=== PATIENT | female | born 1995 | race Caucasian/White ===

== ENCOUNTER 2016-10-13 10:32 | Emergency (ER) | payer SELFPAY ==
[2016-10-13] MEDS ORDERED: Ondansetron INJ* 2 MG/ML VIAL IV ONE ×2 (11:20→12:41)
[2016-10-13] MEDS ORDERED: diPHENhydraMINE IV* 50 MG/ML 1 ml VIAL (BENADRYL) SLOW PUSH ONE ×2 (11:20→12:40)
[2016-10-13] MEDS ORDERED: NS 0.9% 1000 ML* 1,000 ML BOLUS ONE (11:20)
--- NOTE | 2016-10-13 11:26 | UC ---
Abdominal Pain Female HPI - HPI Summary HPI Summary: Abrupt onset low abdominal pain L>R staring 1.5 hours ago, since then has vomited 5-6 times, constant retching. No diarrhea or blood in vomit. has mirena in place, does not get regular menses. Denies urinary symptoms. - History of Current Complaint Chief Complaint: UCAbdominalPain Stated Complaint: LOWER ABD,UTERINE PAIN Time Seen by Provider: 10/13/16 11:08 Hx Obtained From: Patient Hx Last Menstrual Period: Mirina-spotting Onset/Duration: Sudden Onset Timing: Constant Severity Initially: Moderate Severity Currently: Moderate Location: Suprapubic Radiates: No Character: Aching, Cramping Aggravating Factor(s): Movement Alleviating Factor(s): Nothing Associated Signs and Symptoms: Positive: Decreased Appetite, Nausea, Vomiting. Negative: Cough, Chest Pain, Urinary Symptoms, Vaginal Bleeding Allergies/Adverse Reactions: Allergies Allergy/AdvReac Type Severity Reaction Status Date / Time No Known Allergies Allergy Verified 10/13/16 10:36 PMH/Surg Hx/FS Hx/Imm Hx - Additional Past Medical History Additional PMH: hx of severe pyelonephritis - Surgical History Surgical History: None - Family History Known Family History: Negative: Blood Disorder - Social History Alcohol Use: Occasionally Substance Use Type: Marijuana Substance Use Comment - Amount & Last Used: occasionally Smoking Status (MU): Current Every Day Smoker Type: Cigarettes Amount Used/How Often: 1/2 ppd - Immunization History Most Recent Influenza Vaccination: never Most Recent Tetanus Shot: within last ten years Most Recent Pneumonia Vaccination: never Review of Systems Constitutional: Negative Skin: Negative Eyes: Negative ENT: Negative Respiratory: Negative Cardiovascular: Negative Gastrointestinal: Abdominal Pain, Vomiting Genitourinary: Negative Motor: Negative Neurovascular: Negative Musculoskeletal: Negative Neurological: Negative Psychological: Negative All Other Systems Reviewed And Are Negative: Yes Physical Exam Triage Information Reviewed: Yes Appearance: Thin, Other: - retching and vomiting during initial exam Vital Signs: Initial Vital Signs Temp 98.3 F 10/13/16 10:50 Pulse 82 10/13/16 10:50 Resp 16 10/13/16 10:50 BP 103/64 10/13/16 10:50 Pulse Ox 99 10/13/16 10:50 Vital Signs Reviewed: Yes Eye Exam: Normal, Other - PERRL Eyes: Positive: Conjunctiva Clear ENT: Positive: Normal ENT inspection, Hearing grossly normal, Pharynx normal, TMs normal, Other: - MM dry. Negative: Tonsillar swelling, Tonsillar exudate Dental Exam: Normal Neck exam: Normal Neck: Positive: Supple, Nontender, No Lymphadenopathy Respiratory Exam: Normal Respiratory: Positive: Chest non-tender, Lungs clear, Normal breath sounds, No respiratory distress, No accessory muscle use Cardiovascular Exam: Normal Cardiovascular: Positive: RRR, No Murmur Abdomen Description: Positive: Other: - low abdominal discomfort. Negative: Nontender - nonfocal low ab pain Musculoskeletal Exam: Normal Musculoskeletal: Positive: Strength Intact Neurological Exam: Normal Neurological: Positive: Alert Psychological Exam: Normal Skin Exam: Normal Skin: Negative: rashes Re-Evaluation - Re-Evaluation First Eval Re-Evaluation Time: 12:05 Change: Improved - resting comfortably, no longer vomiting Second Eval Re-Evaluation Time: 12:43 Change: Worse - pain is worsening, pt was able to leave a urine sample but feels that nausea and pain is getting much worse, unable to lie still Third Eval Re-Evaluation Time: 14:00 Change: Improved - nausea under better control, still having pain Abd Pain Female Course/Dx - Course Course Of Treatment: Encouraged pt to go to ED for any worsening over the weekend, especially worsening pain, fainting, or vaginal bleeding. - Differential Dx/Diagnosis Provider Diagnoses: L ovarian hemorrhagic cyst. rupturing ovarian cyst. acute vomiting Discharge - Discharge Plan Condition: Stable Disposition: HOME Prescriptions: HYDROcodone/ACETAMIN 5-325 MG* [[place] 5-325 TAB*] 1 tab PO Q6H PRN #8 tab MDD 4 PRN Reason: Pain Naproxen [Naproxen 500 mg] 500 mg PO BID #14 tab Prochlorperazine TAB* [Compazine Tab*] 10 mg PO Q6H PRN #10 tab PRN Reason: Nausea Patient Education Materials: Ruptured Ovarian Cyst (ED), Acute Nausea and Vomiting (ED) Referrals: Diaz Liu MD [Medical Doctor] - 4 Days
[2016-10-13] MEDS ORDERED: Rabies Vaccine, PCEC INJ* 1 ml ONE (12:11)
[2016-10-13] MEDS ORDERED: Morphine VIAL* 10 MG/ML 1 ML VIAL IV ONE (12:40)
[2016-10-13 13:38] VITALS: BP 118/83
--- NOTE | 2016-10-13 14:31 | RAD ---
INDICATION: Pelvic pain COMPARISON: None TECHNIQUE: Longitudinal and transverse transvaginal scans of the pelvis were obtained. FINDINGS: Uterus: The uterus is normal in size. There are no focal masses. The uterus measures 5.9 x 3.0 x 4.6 cm. Endometrial thickness: The endometrial thickness is measured at 0.4 cm. There is an IUD in expected position.. Free fluid: There is no significant free fluid . Ovaries: The ovaries are normal in size. The right ovary measures 3.3 x 2.5 x 1.8 cm. The left ovary measures 3.9 x 4.7 x 3.9 cm. There is a complex cyst in left ovary measuring 4.3 x 3.1 x 3.4 cm. This may represent a hemorrhagic cyst. Doppler interrogation demonstrates flow to each ovary. Other: None IMPRESSION: IUD IN EXPECTED POSITION. COMPLEX, LIKELY HEMORRHAGIC LEFT OVARIAN CYST MEASURING 4.3 CM. SUGGEST FOLLOW-UP IN 2-3 MENSTRUAL CYCLES.
== END 2016-10-13 14:51 | disposition home or self-care (01) ==
LOC: UCEAST 10:32
DX: N83.202 Unspecified ovarian cyst, left side (principal); R11.2 Nausea with vomiting, unspecified; Z32.02 Encounter for pregnancy test, result negative; F17.210 Nicotine dependence, cigarettes, uncomplicated
CPT/HCPCS: 76830; 81003; 84702; 87086; 90675; 96361; 96374; 96375; 96376; 99212; G0463; J1200; J2270; J2405

== ENCOUNTER 2017-02-27 07:42 | Emergency (ER) | payer SELFPAY ==
[2017-02-27 07:59] VITALS: BP 107/69
--- NOTE | 2017-02-27 08:44 | UC ---
Neck Pain HPI - HPI Summary HPI Summary: 4 DAYS OF POSTERIOR NECK STIFFNESS AND HEADACHE. FEELS "HOT" BUT NO DOCUMENTED FEVER. YESTERDAY DEVELOPED SOME MID STERNAL CP. DENIES COUGH, CONGESTION OR OTHER URI SX. IS NOT A [employer] PERSON. LAST TOOK ADVIL 3 DAYS AGO - STATED IT DID NOT HELP. - History of Current Complaint Chief Complaint: UCHeadapamela Stated Complaint: NECK PAIN HEADACHE Time Seen by Provider: 02/27/17 08:27 Hx Obtained From: Patient, Family/[employer] Driver - GIRLFRIEND Hx Last Menstrual Period: Mirina-spotting Onset/Duration Of Injury/Symptoms: Days Mechanism Of Injury: No Known Trauma Timing: Constant Onset/Duration: Gradual Onset, Still Present Severity: Moderate Pain Intensity: 8 Pain Scale Used: 0-10 Numeric Location: Discrete At: - POSTERIOR Character: Aching, Stiff Aggravating Factors: Movement Alleviating Factors: Nothing Associated Signs & Symptoms: Positive: Headache. Negative: Swelling, Redness, Nuchal Rigity - Allergies/Home Medications Allergies/Adverse Reactions: Allergies Allergy/AdvReac Type Severity Reaction Status Date / Time No Known Allergies Allergy Verified 02/27/17 07:50 Home Medications: Home Medications Levonorgestrel (Iud) [Mirena IUD] 1 02/27/17 [History] PMH/Surg Hx/FS Hx/Imm Hx Previously Healthy: Yes - Surgical History Surgical History: None - Family History Known Family History: Negative: Hypertension, Blood Disorder - Social History Alcohol Use: Occasionally Substance Use Type: Marijuana Substance Use Comment - Amount & Last Used: occasionally Smoking Status (MU): Current Every Day Smoker Type: Cigarettes Amount Used/How Often: 1/2 ppd - Immunization History Most Recent Influenza Vaccination: never Most Recent Tetanus Shot: within last ten years Most Recent Pneumonia Vaccination: never Review Of Systems Constitutional: Positive: Fever, Fatigue Skin: Positive: Negative ENT: Positive: Negative Respiratory: Positive: Negative Cardiovascular: Positive: Negative Gastrointestinal: Positive: Negative Musculoskeletal: Positive: Arthralgia Neurological: Positive: Headache All Other Systems Reviewed And Are Negative: Yes Physical Exam Triage Information Reviewed: Yes Appearance: Well-Nourished, Pain Distress - MODERATE Vital Signs: Initial Vital Signs Temp 98.1 F 02/27/17 07:51 Pulse 94 02/27/17 07:51 Resp 16 02/27/17 07:51 BP 107/69 02/27/17 07:51 Pulse Ox 99 02/27/17 07:51 Vital Signs Reviewed: Yes Eyes: Positive: Conjunctiva Clear ENT: Positive: Hearing grossly normal Neck: Positive: No Lymphadenopathy, Tenderness @ - POSTERIOR NECK DIFFUSELY. Negative: Nuchal Rigidity Respiratory Exam: Normal Cardiovascular Exam: Normal Musculoskeletal: Positive: No Edema Neurological: Positive: Alert, Muscle Tone Normal, Other: - CN II-XII GROSSLY INTACT BILATERALLY. NO FOCAL NEUROLOGIC DEFICITS Psychological: Positive: Normal Response To Family, Age Appropriate Behavior Skin: Negative: rashes Neck Pain Course/Dx - Differential Dx/Diagnosis Provider Diagnoses: 1. ACUTE NECK PAIN/HEADACHE Discharge - Discharge Plan Condition: Stable Disposition: OTHER Discharge Disposition Comment: TO [facility] ED BY PRIVATE CAR Patient Education Materials: Neck Pain (ED) Referrals: No Primary Care Phys,NOPCP [Primary Care Provider] - Additional Instructions: GO DIRECTLY TO [facility] ED FROM HERE FOR FURTHER EVALUATION. CALL THE NUMBER BELOW FOR ASSISTANCE IN ESTABLISHING WITH A PCP An additional resource available to assist in finding the appropriate physician for your health care needs is the [facility] ([facility]). You may contact them by calling [phone].
== END 2017-02-27 08:47 ==
LOC: UCEAST 07:42
DX: M54.2 Cervicalgia (principal); R51 Headache; Z72.0 Tobacco use
CPT/HCPCS: 99211; G0463

== ENCOUNTER 2017-02-27 09:15 | Emergency (ER) | payer SELFPAY ==
--- NOTE | 2017-02-27 10:14 | ED ---
Neck Pain - HPI Summary HPI Summary: 21 female presents to ED sent by [facility] to rule out meningitis, with complaints of neck pain and stiffness that began on Sunday02/23/17 and has not improved. Patient states she thought she just slept wrong and it was a stiff neck however it has not improved. Took an ibuprofen on Sunday that only helped for 1 hour so stopped taking it. States it is both hard and painful to move her neck. Admits to feeling feverish however no known fever. Denies nausea, vomiting and vision changes. Admits to some right sided headache/pain that comes and goes. Had meningitis as a . Denies any other complaints. No other medical problems. Has a IUD, no other medications. no known trauma or injury. - History of Current Complaint Chief Complaint: EDNeckComplaint Stated Complaint: NECK PAIN COMING FROM [facility] Time Seen by Provider: 02/27/17 09:36 Hx Obtained From: Patient Hx Last Menstrual Period: Mirina-spotting Mechanism Of Injury: No Known Trauma Timing: Constant Onset/Duration: Sudden Onset, Started days ago, Still Present, Worse Since Severity Initially: Moderate Severity Currently: Severe Pain Intensity: 9 Pain Scale Used: 0-10 Numeric Location: Discrete At: - paraspinal muscles b/l of c spine C1-C6 Character: Sharp - with movement, Dull - aching in back, Aching, Stiff Aggravating Factors: Movement Alleviating Factors: Position - rest Associated Signs & Symptoms: Positive: Headache - Risk Factors Meningitis Risk Factors: Negative - Allergies/Home Medications Allergies/Adverse Reactions: Allergies Allergy/AdvReac Type Severity Reaction Status Date / Time No Known Allergies Allergy Verified 02/27/17 07:50 PMH/Surg Hx/FS Hx/Imm Hx Endocrine/Hematology History: Denies: Hx Diabetes, Hx Thyroid Disease Cardiovascular History: Denies: Hx Congestive Heart Failure, Hx Hypertension Respiratory History: Denies: Hx Asthma, Hx Chronic Obstructive Pulmonary Disease (COPD) GI History: Denies: Hx Ulcer History: Denies: Hx Renal Disease - Surgical History Surgery Procedure, Year, and Place: n/a - Immunization History Immunizations Up to Date: Yes Infectious Disease History: No Infectious Disease History: Denies: Hx Clostridium Difficile, Hx Hepatitis, Hx Human Immunodeficiency Virus (HIV), Hx of Known/Suspected MRSA, Hx Shingles, Hx Tuberculosis, Hx Known/ Suspected VRE, Traveled Outside the [place] in Last 30 Days - Family History Known Family History: Negative: Hypertension, Blood Disorder - Social History Alcohol Use: Occasionally Substance Use Type: Reports: Marijuana Substance Use Comment - Amount & Last Used: occasionally Smoking Status (MU): Current Every Day Smoker Type: Cigarettes Amount Used/How Often: 1/2 ppd Review of Systems Constitutional: Negative Cardiovascular: Negative Respiratory: Negative Positive: Arthralgia, Myalgia, Decreased ROM - neck pain and stiffness Skin: Negative All Other Systems Reviewed And Are Negative: Yes Physical Exam Triage Information Reviewed: Yes Vital Signs On Initial Exam: Initial Vitals Temp Pulse Resp BP Pulse Ox 97.8 F 85 16 113/74 99 02/27/17 09:21 02/27/17 09:21 02/27/17 09:21 02/27/17 09:21 02/27/17 09:21 Vital Signs Reviewed: Yes Appearance: Positive: Well-Appearing, Well-Nourished, Pain Distress - mild to moderate with movement Skin: Positive: Warm, Skin Color Reflects Adequate Perfusion, Dry. Negative: Cold, Cyanosis @, Pale, Erythema @ Head/Face: Positive: Normal Head/Face Inspection. Negative: Scalp Eyes: Positive: Normal, EOMI, THOMAS, Conjunctiva Clear ENT: Positive: Normal ENT inspection, Hearing grossly normal, Pharynx normal, TMs normal, Uvula midline. Negative: Tonsillar swelling, Tonsillar exudate Neck: Positive: Supple, Nontender, No Lymphadenopathy, Tenderness @ - paraspinal muscles bilaterally on palpation frp, C1-C6, Other: - negative kernigs and brudinski Respiratory/Lung Sounds: Positive: Clear to Auscultation, Breath Sounds Present. Negative: Rales, Rhonchi, Wheezes Cardiovascular: Positive: Normal, RRR, Pulses are Symmetrical in both Upper and Lower Extremities. Negative: Murmur, Rub Abdomen Description: Positive: Nontender, Soft. Negative: Distended, Guarding Bowel Sounds: Positive: Present Musculoskeletal: Positive: Normal, Strength/ROM Intact, Pain @ - with cervical movement, Other - rest of MSK exam normal. Negative: Limited @, Interruption @ , Edema Left, Edema Right Neurological: Positive: Normal, Sensory/Motor Intact, Alert, Oriented to Person Place, Time, NV Bundle Intact Distally, Normal Gait, Facial Symmetry, Speech Normal - [place] Coma Scale Best Eye Response: 4 - Spontaneous Best Motor Response: 6 - Obeys Commands Best Verbal Response: 5 - Oriented Coma Scale Total: 15 Diagnostics - Vital Signs Vital Signs Temp Pulse Resp BP Pulse Ox 02/27/17 09:21 97.8 F 85 16 113/74 99 - Laboratory Result Diagrams: 02/27/17 10:06 02/27/17 10:06 Lab Statement: Any lab studies that have been ordered have been reviewed, and results considered in the medical decision making process. - CT cervical spine CT Interpretation: No Acute Changes - STRAIGHTENING OF THE CERVICAL SPINE, NO EVIDENCE FOR FRACTURE OR SUBLUXATION. CT Interpretation Completed By: Radiologist - and myself Re-Evaluation - Re-Evaluation First Eval Re-Evaluation Time: 12:00 Change: Improved - had relief after medication, updated on plan for LP Neck Course/Dx - Course Course Of Treatment: labs obtained, given toradol and norflex and had relief however still was experiencing stiffness. Ct cervical spine obtained and negative. normal vitals. elevated CRP and sed rate. Labs unremarkable otherwise. Dr Maria consulted and preformed LP to rule out meningitis. CSF results obtained and negative. Will send out culture. Due to PE findings, HPI and lab results appears patient is suffering from neck strain. Will continue nsaids and muscle relaxer. heat and rest. aware of worsening signs and symptoms. follow up pcp. patient is aware of worsening signs and symptoms and educated on concerning symptoms after LP. No other concerns at this time. - Diagnoses Provider Diagnoses: Neck strain, Neck pain - Physician Notifications Discussed Care Of Patient With: Dr Maria Discharge - Discharge Plan Condition: Stable Disposition: HOME Prescriptions: Cyclobenzaprine TAB* [Flexeril 10 MG TAB*] 10 mg PO BEDTIME #10 tab Naproxen TAB* [Naprosyn 375 mg TAB*] 375 mg PO Q8H PRN #25 tab PRN Reason: Pain Patient Education Materials: Cervical Strain (ED), Neck Pain (ED) Referrals: [facility]YSICIAN REFERRAL [Outside] Additional Instructions: Take prescribed medication as directed for the next few days while symptoms persist. Any new or worsening symptoms please seek medical attention promptly as discussed. Follow up with PCP to ensure improvement and follow up. Rest and avoid overuse. Apply heating pad on neck for relief. Muscle relaxer may make you drowsy, do not take while driving.
[2017-02-27 10:17] LABS: Hematocrit 39 % (35-47); Hemoglobin 13.1 g/dl (12.0-16.0); Mean Corpuscular HGB Conc 34 g/dl (31-36); Mean Corpuscular Hemoglobin 28 pg (27-31); Mean Corpuscular Volume 82 fL (80-97); Mean Platelet Volume 7 um3 (7.4-10.4); Red Blood Count 4.72 10^6/ul (4.0-5.4); Red Cell Distribution Width 13 % (10.5-15); White Blood Count 6.4 10^3/ul (3.5-10.8)
[2017-02-27 10:20] LABS: Comments Flag Yes
[2017-02-27 10:32] LABS: ALT 17 U/L (7-52); AST 21 U/L (13-39); Albumin 3.9 g/dL (3.2-5.2); Alkaline Phosphatase 47 U/L (34-104); Anion Gap 5 mmol/L (2-11); BUN/Creatinine Ratio 7.5 (8-20); Blood Urea Nitrogen 6 mg/dL (6-24); C Reactive Protein 18.81 mg/L (< 5.00); CO2 Carbon Dioxide 25 mmol/L (22-32); Calcium 9.3 mg/dL (8.6-10.3); Chloride 105 mmol/L (101-111); EGFR African American 116.4 (>60); EGFR Non-African American 90.5 (>60); Glucose 99 mg/dL (70-100); Potassium 3.9 mmol/L (3.5-5.0); Sodium 135 mmol/L (133-145); Total Protein 6.9 g/dL (6.4-8.9)
[2017-02-27] MEDS ORDERED: Ketorolac INJ* 30 MG/ML 1 ML VIAL IV PUSH ONE (10:38)
[2017-02-27] MEDS ORDERED: Orphenadrine Citrate IV* 30 MG/ML 2 ML VIAL IV ONE (10:38)
--- NOTE | 2017-02-27 11:10 | RAD ---
INDICATION: Neck stiffness and pain. COMPARISON: There are no prior studies available for comparison. TECHNIQUE: Contiguous axial sections were obtained from the skull base through the T1 vertebra. Images were reconstructed in the sagittal and coronal planes. FINDINGS: There is straightening of the cervical spine with loss of the normal cervical lordosis. No prevertebral soft tissue swelling or fracture is seen. Disc spaces appear maintained. There is no evidence for spinal canal or neural foraminal narrowing. IMPRESSION: STRAIGHTENING OF THE CERVICAL SPINE, NO EVIDENCE FOR FRACTURE OR SUBLUXATION.
[2017-02-27 11:24] LABS: Erythrocyte Sed Rate 24 mm/Hr (0-14)
[2017-02-27 11:44] LABS: Urine Bacteria Absent (Absent); Urine Bilirubin Negative (Negative); Urine Glucose Negative (Negative); Urine Nitrite Negative (Negative)
[2017-02-27] MEDS: NS 0.9% 1000 ML* 2,000 ML IV ONE (11:50)
[2017-02-27] MEDS ORDERED: cefTRIAXone(*) 2 GM in NS 0.9% 100 ML* 100 ML IVPB ONE (13:59)
[2017-02-27] MEDS ORDERED: Lidocaine 1%* 5 ML VIAL ONE (14:01)
[2017-02-27 15:21] LABS: Body Fluid Appearance Clear
[2017-02-27 15:30] LABS: BF RBC Count #1 0; BF RBC Count #2 0; BF WBC Count #1 1; BF WBC Count #2 1; Body Fluid WBC 1 /mcL; RBC counts within 6%? Yes; WBC counts within 15%? Yes
[2017-02-27] MEDS ORDERED: Acetaminophen TAB* 325 MG PO ONE (15:33)
[2017-02-27 15:35] LABS: CSF Glucose 55 mg/dL (40-70)
[2017-02-27 16:01] LABS: Body Fluid Total Cells Counted 11
[2017-02-27 16:41] VITALS: BP 100/73
== END 2017-02-27 16:53 | disposition home or self-care (01) ==
LOC: ED 09:15
DX: S16.1XXA Strain of muscle, fascia and tendon at neck level, initial encounter (principal); X58.XXXA Exposure to other specified factors, initial encounter; Y93.9 Activity, unspecified; Y92.9 Unspecified place or not applicable; M54.2 Cervicalgia; R51 Headache; Z32.02 Encounter for pregnancy test, result negative; Z86.61 Personal history of infections of the central nervous system; Z97.5 Presence of (intrauterine) contraceptive device; F12.90 Cannabis use, unspecified, uncomplicated; F17.210 Nicotine dependence, cigarettes, uncomplicated
CPT/HCPCS: 36415; 72125; 80053; 81003; 81015; 82945; 83605; 84157; 84702; 85025; 85610; 85652; 86140; 87070; 87086; 87205; 89051; 96361; 96365; 96375; 99283; A9270-GY; J0696; J1885; J2360

== ENCOUNTER 2017-07-09 21:36 | Inpatient (IN) | payer SELFPAY ==
[2017-07-09 22:49] LABS: Hematocrit 37 % (35-47); Hemoglobin 12.6 g/dl (12.0-16.0); Mean Corpuscular HGB Conc 34 g/dl (31-36); Mean Corpuscular Hemoglobin 27 pg (27-31); Mean Corpuscular Volume 81 fL (80-97); Mean Platelet Volume 7.9 um3 (7.4-10.4); Platelet Count 228 10^3/ul (150-450); Red Blood Count 4.64 10^6/ul (4.0-5.4); Red Cell Distribution Width 13 % (10.5-15); White Blood Count 2.9 10^3/ul (3.5-10.8)
[2017-07-09 23:10] LABS: Urine Appearance Clear; Urine Blood 1+ (Negative); Urine Color Straw; Urine Ketones Negative (Negative); Urine Protein Negative (Negative); Urine Specific Gravity 1.002 (1.010-1.030); Urine Urobilinogen Negative (Negative)
[2017-07-09 23:33] LABS: ABS Basophils 0 10^3/ul (0-0.2); ABS Eosinophils 0.1 10^3/ul (0-0.6); ABS Monocytes 1.6 10^3/ul (0-0.8); ABS Neutrophils 0.1 10^3/ul (1.5-7.7); ABS Nucleated RBC 0 10^3/ul; Eosinophil % 2.1 % (0-6); Lymphocyte % 35.4 % (25-47); Nucleated Red Blood Cells % 0
[2017-07-09 23:55] LABS: Monocytes % 51 % (0-7)
[2017-07-09] MEDS ORDERED: NS 0.9% 1000 ML*IV.FLUID IV ONE (23:56)
--- NOTE | 2017-07-10 00:46 | ED ---
HPI Febrile Illness - HPI Summary HPI Summary: 21-year-old female presents with back pain and fever since Sunday. She states that the back pain was on the sides of her lower back. She states this is similar to when she developed pyelo couple years ago. She denies any pain with urination. she denies urinary or frequency. She denies any nausea or vomiting. She denies any bowel pain. She admits to sore throat. She denies any cough. She denies any headache or neck stiffness. She denies any photophobia. she has been taking ibuprofen for her symptoms. She denies any injury to her back. She denies any loss of bowel or bladder. She denies any saddle anesthesia. She denies any weakness into her legs. She is not an IV drug user. not on any medications and no recent illness. she has no medical conditions. - History of Current Complaint Chief Complaint: EDFlankPain Time Seen by Provider: 07/09/17 23:53 Hx Last Menstrual Period: Mirina-spotting Pain Intensity: 10 - Allergy/Home Medications Allergies/Adverse Reactions: Allergies Allergy/AdvReac Type Severity Reaction Status Date / Time No Known Allergies Allergy Verified 02/27/17 07:50 Home Medications: Home Medications NK [No Home Medications Reported] 07/10/17 [History Confirmed 07/10/17] PMH/Surg Hx/FS Hx/Imm Hx Endocrine/Hematology History: Denies: Hx Diabetes, Hx Thyroid Disease Cardiovascular History: Denies: Hx Congestive Heart Failure, Hx Hypertension Respiratory History: Denies: Hx Asthma, Hx Chronic Obstructive Pulmonary Disease (COPD) GI History: Denies: Hx Ulcer History: Denies: Hx Renal Disease - Surgical History Surgery Procedure, Year, and Place: n/a Infectious Disease History: No Infectious Disease History: Denies: Hx Clostridium Difficile, Hx Hepatitis, Hx Human Immunodeficiency Virus (HIV), Hx of Known/Suspected MRSA, Hx Shingles, Hx Tuberculosis, Hx Known/ Suspected VRE, Traveled Outside the [place] in Last 30 Days - Family History Known Family History: Negative: Hypertension, Blood Disorder - Social History Alcohol Use: Occasionally Substance Use Type: Reports: Marijuana Substance Use Comment - Amount & Last Used: last used today Smoking Status (MU): Current Every Day Smoker Type: Cigarettes Amount Used/How Often: 1/2 ppd Review of Systems Positive: Fever Positive: Sore Throat Negative: Chest Pain Negative: Shortness Of Breath Negative: Abdominal Pain, Vomiting, Diarrhea, Nausea Negative: burning Positive: Myalgia - back pain All Other Systems Reviewed And Are Negative: Yes Physical Exam Triage Information Reviewed: Yes Vital Signs On Initial Exam: Initial Vitals Temp Pulse Resp BP Pulse Ox 101.4 F 101 20 103/61 99 07/09/17 21:44 07/09/17 21:44 07/09/17 21:44 07/09/17 21:44 07/09/17 21:44 Vital Signs Reviewed: Yes Appearance: Positive: Well-Appearing Skin: Positive: Warm, Dry Head/Face: Positive: Normal Head/Face Inspection Eyes: Positive: Normal, EOMI, THOMAS, Conjunctiva Clear ENT: Positive: Pharyngeal erythema, TMs normal, Tonsillar swelling, Uvula midline, Other - soft palate symmetric. Negative: Tonsillar exudate Neck: Positive: Tenderness @ - cervical lymph nodes Respiratory/Lung Sounds: Positive: Clear to Auscultation, Breath Sounds Present Cardiovascular: Positive: Normal, RRR Abdomen Description: Positive: Nontender, Soft Bowel Sounds: Positive: Present Musculoskeletal: Positive: Strength/ROM Intact - back, Other - tenderness lower back, neg SLR, good pulses Neurological: Positive: Normal Psychiatric: Positive: Normal Diagnostics - Vital Signs Vital Signs Temp Pulse Resp BP Pulse Ox 07/09/17 23:51 99.2 F 07/09/17 21:44 101.4 F 101 20 103/61 99 - Laboratory Lab Results: Lab Results 07/09/17 07/09/17 07/09/17 Range/Units 22:30 22:30 22:46 WBC 2.9 L (3.5-10.8) 10^3/ul RBC 4.64 (4.0-5.4) 10^6/ul Hgb 12.6 (12.0-16.0) g/dl Hct 37 (35-47) % MCV 81 (80-97) fL MCH 27 (27-31) pg MCHC 34 (31-36) g/dl RDW 13 (10.5-15) % Plt Count 228 (150-450) 10^3/ul MPV 7.9 (7.4-10.4) um3 Neut % (Auto) 5.1 L (38-83) % Lymph % (Auto) 35.4 (25-47) % [place] % (Auto) 56.4 H (0-7) % Eos % (Auto) 2.1 (0-6) % Baso % (Auto) 1.0 (0-2) % Absolute Neuts (auto) 0.1 L* (1.5-7.7) 10^3/ul Absolute Lymphs (auto) 1.0 (1.0-4.8) 10^3/ul Absolute Monos (auto) 1.6 H (0-0.8) 10^3/ul Absolute Eos (auto) 0.1 (0-0.6) 10^3/ul Absolute Basos (auto) 0 (0-0.2) 10^3/ul Absolute Nucleated RBC 0 10^3/ul Immature Gran % 2 (0-9) % Neutrophils % 9 L (38-83) % Band Neutrophils % 2 (0-8) % Lymphocytes % 38 (25-47) % Monocytes % 51 H (0-7) % Nucleated RBC % 0 Normal RBC Morphology Normal (Normal) Sodium 134 L (139-145) mmol/L Potassium 4.0 (3.5-5.0) mmol/L Chloride 105 (101-111) mmol/L Carbon Dioxide 19 L (22-32) mmol/L Anion Gap 10 (2-11) mmol/L BUN 8 (6-24) mg/dL Creatinine 0.82 (0.51-0.95) mg/dL Est GFR ( Amer) 113.2 (>60) Est GFR (Non-Af Amer) 88.0 (>60) BUN/Creatinine Ratio 9.8 (8-20) Glucose 104 H (70-100) mg/dL Calcium 9.6 (8.6-10.3) mg/dL Total Bilirubin 0.90 (0.2-1.0) mg/dL AST 14 (13-39) U/L ALT 6 L (7-52) U/L Alkaline Phosphatase 43 (34-104) U/L C-Reactive Protein 98.13 H (< 5.00) mg/L Total Protein 7.0 (6.4-8.9) g/dL Albumin 4.1 (3.2-5.2) g/dL Globulin 2.9 (2-4) g/dL Albumin/Globulin Ratio 1.4 (1-3) Lipase < 10 L (11.0-82.0) U/L Beta HCG, Quant < 0.60 mIU/mL Urine Color Straw Urine Appearance Clear Urine pH 6.0 (5-9) Ur Specific [place] 1.002 L (1.010-1.030) Urine Protein Negative (Negative) Urine Ketones Negative (Negative) Urine Blood 1+ A (Negative) Urine Nitrate Negative (Negative) Urine Bilirubin Negative (Negative) Urine Urobilinogen Negative (Negative) Ur Leukocyte Esterase Negative (Negative) Urine WBC (Auto) Absent (Absent) Urine RBC (Auto) Absent (Absent) Urine Bacteria Absent (Absent) Urine Glucose Negative (Negative) Monoscreen Negative (Negative) Result Diagrams: 07/09/17 22:30 07/09/17 22:30 Lab Statement: Any lab studies that have been ordered have been reviewed, and results considered in the medical decision making process. Course/Dx - Course Course Of Treatment: 21-year-old female presents with back pain and fever since Sunday. She states that the back pain was on the sides of her lower back. She states this is similar to when she developed pyelo couple years ago. She denies any pain with urination. she denies urinary or frequency. She denies any nausea or vomiting. She denies any bowel pain. She admits to sore throat. She denies any cough. She denies any headache or neck stiffness. She denies any photophobia. she has been taking ibuprofen for her symptoms. She denies any injury to her back. She denies any loss of bowel or bladder. She denies any saddle anesthesia. She denies any weakness into her legs. She is not an IV drug user. not on any medications and no recent illness. she has no medical conditions. On exam tenderness lower back. Nontender abdomen. Pharynx erythematous. Labs White blood cell count low and is neutropenic with fever. [place] negative. Discuss with Dr. Duenas who will admit patient for neutropenic fever. Patient understands agrees the plan. - Febrile Illness Differential Diagnoses: Pyelonephritis, Viremia, Other: - mono - Diagnoses Provider Diagnoses: Back pain, Neutropenia with fever - Provider Notifications Discussed Care Of Patient With: dr duenas Time Discussed With Above Provider: 00:25 - will admit due to fever and neuropenia - Critical Care Time Critical Care Time: 30-74 min - 45 Discharge - Sign-Out/Discharge Documenting (check all that apply): Discharge/Admit/Transfer - Discharge Plan Condition: Stable Disposition: ADMITTED TO [facility] Referrals: No Primary Care Phys,NOPCP [Primary Care Provider] - - Billing Disposition and Condition Condition: STABLE Disposition: [facility]
[2017-07-10] MEDS ORDERED: Ketorolac INJ* 30 MG/ML 1 ML VIAL IV PUSH ONE (00:55)
[2017-07-10] MEDS ORDERED: Piperacillin/Tazobac ADVAN(*) 3.375 GM in NS 0.9% 100 ML* 100 ML IVPB ONE (01:02)
[2017-07-10] MEDS ORDERED: Piperacillin/Tazobac ADVAN(*) 3.375 GM in NS 0.9% 100 ML* 100 ML IVPB SCH (02:00)
[2017-07-10] MEDS: traMADol TAB* 50 MG PO PRN ×3 (02:51→19:55)
[2017-07-10] MEDS: NS 0.9% 1000 ML* 1,000 ML IV SCH ×3 (03:08→18:34)
[2017-07-10] MEDS ORDERED: Morphine INJ* 2 MG/ML 1 ML CARPUJECT IV PRN (03:40)
[2017-07-10] MEDS ORDERED: Morphine VIAL* 4 MG/ML VIAL (1 ml vial) IV ONE (03:46)
--- NOTE | 2017-07-10 03:48 | HP ---
HISTORY AND PHYSICAL: DATE OF ADMISSION: 07/10/17 PRIMARY CARE PROVIDER: None. CHIEF COMPLAINT: Back pain and fever. HISTORY OF PRESENT ILLNESS: Ms. Rodriguez is a 21-year-old female who has no significant past medical history outside of an episode of meningitis as an infant and pyelonephritis approximately 2 to 3 years ago who presents to the emergency room with complaints of back pain and fever. The patient states that on the evening of 07/07/17, she began to feel unwell. Approximately 2 to 3 hours after going to sleep, she woke up in significant amount of low back pain. She states that she felt achy all over. She felt that her tonsils were somewhat swollen and it hurt to swallow. The patient states that she ended up taking some ibuprofen to allow herself to go back to sleep. On the morning of 07/08/17, she began to have fever. She also had chills. Back pain persisted. Given her history of pyelonephritis in 2014, she was referred to the emergency room by her mom. The patient states that in addition to the above symptoms, she had some dizziness with changing of position such as going from seated to standing position. The patient denies any recent cold symptoms. She denies any nausea or vomiting. No headache, no dysuria, no diarrhea, no skin rash or redness. PAST MEDICAL HISTORY: 1. History of meningitis as an infant. 2. Episode of pyelonephritis in 2014. PAST SURGICAL HISTORY: None. MEDICATIONS: Intermittent use of ibuprofen. ALLERGIES: None. FAMILY HISTORY: Mom is living. She is 45. She has a history of ADHD. Dad is living. He is 49. He has a history of hypertension. SOCIAL HISTORY: The patient smokes anywhere between one-half to three quarters of pack cigarettes per day. She drinks alcohol rarely. She does use marijuana on occasions. She is unemployed. She is not . She has no children. She indicates that her mom, Coco Handy, is her healthcare proxy. REVIEW OF SYSTEMS: A complete 11-system review of systems is obtained. Pertinent positives and negative are as per HPI and in addition, the patient does state that her appetite has been poor over the last one day. PHYSICAL EXAMINATION GENERAL: The patient is a well-developed, young female seen sitting in the stretcher, in no acute distress. VITAL SIGNS: Blood pressure 103 /61, pulse 101, respirations 20, temp 101.4, O2 sat 99% on room air. HEENT: Pupils are equal and round. Extraocular muscles intact. Tonsils are mildly elevated. There is a scant amount of tonsillar exudate on the right tonsil. There is anterior cervical adenopathy and supraclavicular adenopathy on the left. There is no axillary adenopathy noted. PULMONARY: Lungs are clear to auscultation bilaterally. CARDIAC: Normal S1, S2. Regular rate and rhythm. I do not appreciate any murmur. There is no lower extremity edema. ABDOMEN: Bowel sounds present. Abdomen is soft, nontender, nondistended. MUSCULOSKELETAL: There is no cyanosis or clubbing of the digits. There is full active range of motion of all 4 extremities. SKIN: Warm and dry. There are no rashes. NEUROLOGIC: Cranial nerves II to XII are grossly intact. Sensation is intact to light touch throughout. Strength is 5/5 and symmetric in both upper and lower extremities bilaterally. PSYCH: The patient is alert. She is oriented x3. Affect appears appropriate. LABORATORY DATA: WBC 2.9, hemoglobin 12.6, hematocrit 37, and platelets of 228 , absolute neutrophils 0.1, absolute monocytes 1.6. Sodium 134, potassium 4.0, chloride 105, CO2 29, BUN 8, creatinine 0.82, glucose 104, lactic acid 1.0, calcium 9.6, bilirubin 0.9, AST 14, ALT 6, alk phos 43, CRP 98.13, albumin 4.1, lipase less than 10. Urinalysis reveals a specific gravity of 1.002 with 1+ blood, absent rbc's. Monospot negative. Chest x-ray to my interpretation appears to be clear without any infiltrates. Renal ultrasound reveals heterogenous nonspecific echogenicity in the left and right renal cortex may be due to mild pyelonephritis. There is a right 2 to 3 mm nonobstructing kidney stones. There is no hydroureter. No stones in the ureters. ASSESSMENT AND PLAN: Ms. Rodriguez is a 21-year-old female who presents to the emergency room with complaints of back pain and fever and was found to be neutropenic. 1. Febrile neutropenia. The etiology of the neutropenia is unclear. This is the first time occurrence for the patient. Her absolute neutrophil count is markedly low, but her absolute monos are quite high. I do question if perhaps she has viral illness leading to this. I questioned given her symptoms including fever, pharyngitis and adenopathy possible Emilia-Marino virus infection. While her Monospot was negative, we will order EBV serologies. Given the fever and the concerns for heterogenicity of the kidneys bilaterally, we will continue antibiotics. Blood cultures are pending. She has no other clear signs of infection at this point. Hematology consultation will be requested for later today. Additionally, we will send off HIV 1 and 2 antibody testing. 2. DVT prophylaxis. According to the Adult Thrombosis Prophylaxis Risk Factor Assessment Guide, the patient has a total risk factor score of 0 making her low risk. Ambulation will be utilized as DVT prophylaxis. 3. Code status is full. TIME SPENT: 65 minutes were spent admitting this patient. [id number]/[facility] #: [id number] MTDFarooq
[2017-07-10] MEDS ORDERED: PROCHLORPERAZINE INJ 5 MG/ML 2 ML VIAL ONE (03:59)
[2017-07-10] MEDS: PROCHLORPERAZINE INJ 5 MG/ML 2 ML VIAL IV PRN (04:01)
[2017-07-10] MEDS: Piperacillin/Tazobactam 13.5 GM IV 24 hour continuous infusion IVPB SCH ×2 (05:40)
--- NOTE | 2017-07-10 07:39 | RAD ---
INDICATION: Bilateral flank pain. Fever. COMPARISON: CT abdomen pelvis March 15, 2014 TECHNIQUE: Longitudinal and transverse scans of the kidneys were obtained. FINDINGS: Kidneys: The kidneys are normal in size. The right kidney measures 10.1 x 4.3 x 4.9 cm and the left kidney 10.4 x 5.0 x 4.9 cm. Other: There is no hydronephrosis or perinephric fluid collection. There are no definite renal calculi. IMPRESSION: NO DEFINITIVE ABNORMALITIES. SUGGEST CORRELATION WITH URINALYSIS AND CT IMAGING IF INDICATED
--- NOTE | 2017-07-10 07:48 | RAD ---
INDICATION: Fever COMPARISON: March 14, 2014 TECHNIQUE: PA and lateral dual-energy views were obtained. FINDINGS: Bones/Soft Tissues: There are no acute bony findings. Cardiomediastinal: The cardiomediastinal silhouette is normal. Lungs: There are no infiltrates. Pleura: There are no pleural effusions. Other: None IMPRESSION: NORMAL CHEST
--- NOTE | 2017-07-10 09:40 | PN ---
Subjective Date of Service: 07/10/17 Interval History: Patient rounded on twice today. earlier today she reported she was feeling a little better but still felt unwell with malaise, body aches and sore throat. low grade temp. No chills/rigors. No N/V/D. Denies abdominal pain. No dysuria. Denies MYRICK or stiff neck. Reported little appetite. Called to the room by the nurse around 545pm after patient awoke from a nap and c/o of worsening sore throat stating "it is very painful to swallow" and was crying. I evaluated her at the bedside where she appears to be teary. No noted difficulty breathing or stridor. No drooling noted. She is able to drink fluids w/o difficulty. noted to be guarding a little. She reports this is the worst her throat has felt since Sunday when she developed the sore throat. Objective Active Medications: Acetaminophen (Tylenol Tab*) 650 mg PO Q4H PRN PRN Reason: PAIN Sodium Chloride (Ns 0.9% 1000 Ml*) 1,000 mls @ 125 mls/hr IV PER RATE ADIEL Last Admin: 07/10/17 03:08 Dose: 125 mls/hr Piperacillin Sod/Tazobactam (Sod 13.5 gm/ Sodium Chloride) 500 mls @ 20.833 mls /hr IVPB Q24H [facility] Last Admin: 07/10/17 05:40 Dose: 20.833 mls/hr Morphine Sulfate (Morphine Vial*) 2 mg IV Q4H PRN PRN Reason: PAIN - MILD Prochlorperazine Edisylate (Compazine Inj*) 10 mg IV Q6H PRN PRN Reason: NAUSEA/VOMITING Last Admin: 07/10/17 04:01 Dose: 10 mg Tramadol HCl (Ultram*) 50 mg PO Q8H PRN PRN Reason: PAIN Last Admin: 07/10/17 02:51 Dose: 50 mg Vital Signs - 8 hr 07/10/17 07/10/17 07/10/17 01:47 02:40 02:50 Temperature 99.4 F 99.4 F 98 F Pulse Rate 98 92 Respiratory 20 24 Rate Blood Pressure 114/61 99/59 (mmHg) O2 Sat by Pulse 98 100 Oximetry 07/10/17 07/10/17 07/10/17 02:51 02:55 03:54 Temperature 98 F Pulse Rate 92 Respiratory 22 24 24 Rate Blood Pressure 99/59 (mmHg) O2 Sat by Pulse 100 Oximetry 07/10/17 07/10/17 05:43 07:23 Temperature Pulse Rate Respiratory 16 Rate Blood Pressure (mmHg) O2 Sat by Pulse 98 Oximetry Oxygen Devices in Use Now: None Appearance: well developed 21 yo female A+Ox3 in NAD Eyes: No Scleral Icterus, PERRLA Ears/Nose/Mouth/Throat: NL Teeth, Lips, Gums, Mucous Membranes Moist, - - tonsils: right 1-2+ left 2-3+, no noted exudate, tonsilar stone (yellow)? noted. Uvula midline. erythema. Neck: NL Appearance and Movements; NL JVP, Trachea Midline, - - left tonsilar lymph node swollen, tender on palpation. Able to swallow, mild guarding. no drooling. Respiratory: Symmetrical Chest Expansion and Respiratory Effort, Clear to Auscultation Cardiovascular: NL Sounds; No Murmurs; No JVD, RRR, No Edema Abdominal: NL Sounds; No Tenderness; No Distention, No Hepatosplenomegaly Extremities: No Edema, No Clubbing, Cyanosis Skin: No Rash or Ulcers, No Nodules or Sclerosis Neurological: Alert and Oriented x 3, NL Sensation, NL Gait, NL Muscle Strength and Tone Lines/Tubes/Other Access: Clean, Dry and Intact Peripheral IV Nutrition: Taking PO's Result Diagrams: 07/10/17 11:55 07/10/17 11:55 Additional Lab and Data: Lab Results 07/09/17 07/09/17 07/09/17 Range/Units 22:30 22:30 22:46 WBC 2.9 L (3.5-10.8) 10^3/ul RBC 4.64 (4.0-5.4) 10^6/ul Hgb 12.6 (12.0-16.0) g/dl Hct 37 (35-47) % MCV 81 (80-97) fL MCH 27 (27-31) pg MCHC 34 (31-36) g/dl RDW 13 (10.5-15) % Plt Count 228 (150-450) 10^3/ul MPV 7.9 (7.4-10.4) um3 Neut % (Auto) 5.1 L (38-83) % Lymph % (Auto) 35.4 (25-47) % Bradford % (Auto) 56.4 H (0-7) % Eos % (Auto) 2.1 (0-6) % Baso % (Auto) 1.0 (0-2) % Absolute Neuts (auto) 0.1 L* (1.5-7.7) 10^3/ul Absolute Lymphs (auto) 1.0 (1.0-4.8) 10^3/ul Absolute Monos (auto) 1.6 H (0-0.8) 10^3/ul Absolute Eos (auto) 0.1 (0-0.6) 10^3/ul Absolute Basos (auto) 0 (0-0.2) 10^3/ul Absolute Nucleated RBC 0 10^3/ul Immature Gran % 2 (0-9) % Neutrophils % 9 L (38-83) % Band Neutrophils % 2 (0-8) % Lymphocytes % 38 (25-47) % Monocytes % 51 H (0-7) % Nucleated RBC % 0 Normal RBC Morphology Normal (Normal) Sodium 134 L (139-145) mmol/L Potassium 4.0 (3.5-5.0) mmol/L Chloride 105 (101-111) mmol/L Carbon Dioxide 19 L (22-32) mmol/L Anion Gap 10 (2-11) mmol/L BUN 8 (6-24) mg/dL Creatinine 0.82 (0.51-0.95) mg/dL Est GFR ( Amer) 113.2 (>60) Est GFR (Non-Af Amer) 88.0 (>60) BUN/Creatinine Ratio 9.8 (8-20) Glucose 104 H (70-100) mg/dL Calcium 9.6 (8.6-10.3) mg/dL Total Bilirubin 0.90 (0.2-1.0) mg/dL AST 14 (13-39) U/L ALT 6 L (7-52) U/L Alkaline Phosphatase 43 (34-104) U/L C-Reactive Protein 98.13 H (< 5.00) mg/L Total Protein 7.0 (6.4-8.9) g/dL Albumin 4.1 (3.2-5.2) g/dL Globulin 2.9 (2-4) g/dL Albumin/Globulin Ratio 1.4 (1-3) Lipase < 10 L (11.0-82.0) U/L Beta HCG, Quant < 0.60 mIU/mL Urine Color Straw Urine Appearance Clear Urine pH 6.0 (5-9) Ur Specific [place] 1.002 L (1.010-1.030) Urine Protein Negative (Negative) Urine Ketones Negative (Negative) Urine Blood 1+ A (Negative) Urine Nitrate Negative (Negative) Urine Bilirubin Negative (Negative) Urine Urobilinogen Negative (Negative) Ur Leukocyte Esterase Negative (Negative) Urine WBC (Auto) Absent (Absent) Urine RBC (Auto) Absent (Absent) Urine Bacteria Absent (Absent) Urine Glucose Negative (Negative) Monoscreen Negative (Negative) Microbiology and Other Data: Microbiology 07/10/17 01:37 Group A Streptococcus Rapid Screen - Final Throat Specimen received for Rapid Strep A Molecular testing Assess/Plan/Problems-Billing Assessment: Ms. Rodriguez is a 21 yo female with PMH of previous hospitalization in 2014 for sepsis secondary to ecoli pyelonephritis who presented to the ER with c/o back pain and fever found to be neutropenic - Patient Problems (1) Neutropenia Comment: - unclear source, suspect viral. - chest xray, renal ultrasound negtaive; urine appears negative - mono negative, group A strep negative, HIV negative - awaiting urine and blood cx. - appreciate Dr. Keene consult (Heme/Onc) who looked at her peripheral smear and noted mono cells only - no blasts - most likely viral illness - await cx - Continue abx at this time (2) Acute pharyngitis Comment: - low suspicion for abscess but at risk - gargle w/ salt water & chlorohexadine scheduled while awake - pain control (3) DVT prophylaxis Comment: encourage ambulation
[2017-07-10 12:14] LABS: Hematocrit 33 % (35-47); Hemoglobin 11.2 g/dl (12.0-16.0); Mean Corpuscular HGB Conc 34 g/dl (31-36); Mean Corpuscular Hemoglobin 27 pg (27-31); Mean Corpuscular Volume 80 fL (80-97); Mean Platelet Volume 7.6 um3 (7.4-10.4); Platelet Count 198 10^3/ul (150-450); Red Blood Count 4.12 10^6/ul (4.0-5.4); Red Cell Distribution Width 13 % (10.5-15); White Blood Count 2.8 10^3/ul (3.5-10.8)
[2017-07-10 12:19] LABS: ABS Basophils 0 10^3/ul (0-0.2); ABS Eosinophils 0 10^3/ul (0-0.6); ABS Lymphocytes 0.8 10^3/ul (1.0-4.8); ABS Monocytes 1.8 10^3/ul (0-0.8); ABS Neutrophils 0.2 10^3/ul (1.5-7.7)
[2017-07-10 12:46] LABS: Monocytes % 61 % (0-7)
[2017-07-10 12:56] LABS: EGFR Non-African American 100.6 (>60)
[2017-07-10] MEDS ORDERED: Benzocaine/Menthol LOZ* 1 LOZENGE PO PRN (13:23)
[2017-07-10] MEDS: Morphine VIAL* 4 MG/ML VIAL (1 ml vial) IV PRN (17:41)
[2017-07-10] MEDS: Acetaminophen TAB* 325 MG PO PRN (19:55)
[2017-07-10] MEDS: Chlorhexidine MOUTHWASH 0.12%* 15 ML UDC SWISH SPIT SCH ×2 (20:01→21:40)
[2017-07-11] MEDS: Morphine VIAL* 4 MG/ML VIAL (1 ml vial) IV PRN ×2 (01:46→14:01)
[2017-07-11] MEDS: Chlorhexidine MOUTHWASH 0.12%* 15 ML UDC SWISH SPIT SCH ×6 (02:16→21:47)
[2017-07-11] MEDS: PROCHLORPERAZINE INJ 5 MG/ML 2 ML VIAL IV PRN ×2 (02:23→14:01)
[2017-07-11] MEDS: NS 0.9% 1000 ML* 1,000 ML IV SCH ×2 (02:48→12:00)
[2017-07-11 05:31] LABS: Hematocrit 32 % (35-47); Hemoglobin 11.2 g/dl (12.0-16.0); Mean Corpuscular HGB Conc 35 g/dl (31-36); Mean Corpuscular Hemoglobin 28 pg (27-31); Mean Corpuscular Volume 79 fL (80-97); Mean Platelet Volume 7.9 um3 (7.4-10.4); Platelet Count 200 10^3/ul (150-450); Red Blood Count 4.01 10^6/ul (4.0-5.4); Red Cell Distribution Width 13 % (10.5-15); White Blood Count 4.4 10^3/ul (3.5-10.8)
[2017-07-11 05:55] LABS: EGFR Non-African American 128.7 (>60)
[2017-07-11] MEDS: Piperacillin/Tazobactam 13.5 GM IV 24 hour continuous infusion IVPB SCH ×2 (06:14)
[2017-07-11] MEDS: traMADol TAB* 50 MG PO PRN ×2 (06:21→14:28)
[2017-07-11] MEDS: Acetaminophen TAB* 325 MG PO PRN ×2 (06:21→14:28)
--- NOTE | 2017-07-11 07:27 | CONS ---
MEDICAL ONCOLOGY/HEMATOLOGY CONSULTATION NOTE: DATE OF CONSULT: 07/10/17 REASON FOR CONSULTATION: Neutropenia. CHIEF COMPLAINT: Neutropenia. HISTORY OF PRESENT ILLNESS: Leighann Rodriguez is a 21-year-old female who has had previous history of meningitis as an infant and episode of pyelonephritis in 2014. Two days prior to admission, she developed body aches, which woke her up. She developed body aches at night, went to sleep, woke up five hours later with low back pain and pelvic pain. She tried to sleep and was unable to do so. Her pain was worse on 07/08/17. Her mother thought that she had a fever as well. She felt though she had some difficulty swallowing with difficulty more on the left side than the right going on for the past 2 to 3 days along with a mild sore throat with no associated cough. She had some enlarged lymph nodes of her neck more so on the left side than the right. On the morning of , she did notice a fever along with some non-shaking chills. She did not take her temperature at home and her first documented fever was out in the emergency room when her temperature was 101.4 on 07/09/17 at 9:00 p.m. She does have dizziness on changing position. She denied any headaches. Denies any visual complaints. Denies any diarrhea. Denies any urinary symptoms. PAST MEDICAL HISTORY: 1. Meningitis as an . 2. Pyelonephritis in 2015. 3. History of sinus infection treatment in the middle school, but not since. MEDICATIONS: None. ALLERGIES: None. FAMILY HISTORY: Mother is 45 with ADHD. Father is 49 with hypertension. SOCIAL HISTORY: The patient graduated from [employer] 4 years ago. She has subsequently finished [employer]. 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 She lived with her mother and mother's fiance, her 2 sisters and her boyfriend. She uses marijuana on occasions. She drinks alcohol rarely. She smokes up to 3 quarters of a pack of cigarettes per day. Her mother, Coco Handy, is her healthcare proxy. REVIEW OF SYSTEMS: Negative except as discussed above. Appetite has been great until recently. Weight is stable. No significant shortness of breath, chest pain, or palpitations. No significant abdominal pain until recently and no change bowel or bladder habits. No significant neurologic complaints. PHYSICAL EXAM: A 21-year-old female, lying in bed, in no acute distress. Also cooperative and oriented. Vital Signs: On admission, temperature 101.4, blood pressure 103/61, and pulse 101. At the time of this visit, temperature 99.2, blood pressure 148/95, pulse 82, and O2 saturation 92% to 95%. HEENT: PERRL. EOMI. No erythema or exudate. No tonsillar exudate is noted. No sinus pressure. Lymph node 1 cm, bilateral left greater than right cervical adenopathy. Less than 1 cm palpable left suprapubic adenopathy. No axillary adenopathy. No inguinal adenopathy. Lungs: Clear. Heart: Regular rate and rhythm without murmurs, rubs, or gallops. Abdomen: Soft, nontender without masses or organomegaly. Extremities: No clubbing, cyanosis or edema. Back: No CVA or spinal tenderness. Neurologic Exam: Without focal deficits. LABORATORY STUDIES: On admission, white count 2,900, H and H 37/12.6, platelet count of 128,000. Peripheral smear is reviewed. The vast majority cells seen are monocytes with some lymphocytes and rare neutrophils are seen. H and H was 37/12.6, platelet count 128,000. ANC by machine is 100. All the lymphocytes and monocytes are seen appear to be mature, no blasts are seen. No abnormalities are seen in the platelets or the red cells. Repeat CBC at noon on 07/10/17 with a white count 2800, H and H of 33/11.2 now with 9% neutrophils and 3% bands giving an ANC of just over 300. She continues to have predominance of monocytes. Chemistry studies: Sodium 134, potassium 4.0, chloride 105, bicarb 19, BUN 8, creatinine 0.82, glucose 104. LFTs are within normal limits. Lactic acid is 1. Urinalysis essentially negative with 1 + blood and no white cells or red cells seen. Serology reveals a negative monospot, negative HIV antibodies and a negative rapid strep test. Chest x-ray without any infiltrates. Renal ultrasound given her history of previous pyelonephritis, with no significant abnormalities. No hydronephrosis. No other kidney stones. IMPRESSION AND PLAN: A 21-year-old female with infectious symptoms dating back 2 to 3 days with significant neutropenia without absolute monocytosis and relative lymphocytosis, cell volumes are normal. It is likely given the fact that on peripheral smear no early findings are seen and given lack of abnormalities in her cell volume, this represents a viral infection with suppression of bone marrow. Even by noon of hospital day two, her ANC seems to be rising slightly. Given this, we will hold off on doing any further imaging studies or any invasive studies. If her ANC were to drop or if other cell volumes became abnormal then a bone marrow aspirate and biopsy would certainly be warranted. If her neutrophil count continues to rise, there would be no reason for any further workup and this would most likely be secondary to a suspected viral syndrome. She has already had a negative monospot, but sending for EBV serology along with CMV serology would be appropriate. She has already tested negative for HIV. Obtaining data regarding other viruses which can suppress marrow would not be particularly fruitful and may return positive and it would likely come back after she has declared herself in terms of her counts. [id number]/[facility] #: [id number] [facility]ENTER[facility]ooq
[2017-07-11 07:57] LABS: Monocytes % 44 % (0-7)
[2017-07-11] MEDS: Potassium Chloride LIQUID* 20 MEQ PACKET PO SCH ×2 (10:07→14:09)
[2017-07-11] MEDS ORDERED: Cholecalciferol TAB* 1000 UNITS PO ONE (13:15)
--- NOTE | 2017-07-11 13:18 | PN ---
Subjective Date of Service: 07/11/17 Interval History: patient reports she feels a little better today but continues to have very swollen tonsils but reports improvement. Her face swelling (mild) has resolved. She is able to eat solid foods and drink fluids with mild difficulty. No fever or chills. Denies MYRICK. Objective Active Medications: Acetaminophen (Tylenol Tab*) 650 mg PO Q4H PRN PRN Reason: PAIN Last Admin: 07/11/17 06:21 Dose: 650 mg Chlorhexidine Gluconate (Peridex Mouth Wash 0.12%*) 15 ml SWISH SPIT Q4HR [facility] Last Admin: 07/11/17 10:07 Dose: 15 ml Cholecalciferol (Vitamin D Tab*) 2,000 units PO ONCE ONE Stop: 07/11/17 13:16 Cholecalciferol (Vitamin D Tab*) 2,000 units PO DAILY [facility] Sodium Chloride (Ns 0.9% 1000 Ml*) 1,000 mls @ 125 mls/hr IV PER RATE [facility] Last Admin: 07/11/17 02:48 Dose: 125 mls/hr Morphine Sulfate (Morphine Vial*) 2 mg IV Q4H PRN PRN Reason: PAIN - MILD Last Admin: 07/11/17 01:46 Dose: 2 mg Potassium Chloride (Klor-Con Liquid*) 20 meq PO Q4HR [facility] Stop: 07/11/17 14:01 Last Admin: 07/11/17 10:07 Dose: 20 meq Prochlorperazine Edisylate (Compazine Inj*) 10 mg IV Q6H PRN PRN Reason: NAUSEA/VOMITING Last Admin: 07/11/17 02:23 Dose: 10 mg Throat Lozenges (Chloraseptic Camille*) 1 camille PO Q6H PRN PRN Reason: SORE THROAT Last Admin: 07/10/17 13:29 Dose: 1 camille Tramadol HCl (Ultram*) 50 mg PO Q8H PRN PRN Reason: PAIN Last Admin: 07/11/17 06:21 Dose: 50 mg Vital Signs - 8 hr 07/11/17 07/11/17 07/11/17 06:21 07:22 08:00 Temperature 98.9 F Pulse Rate 105 Respiratory 16 16 16 Rate Blood Pressure 103/69 (mmHg) O2 Sat by Pulse 98 Oximetry 07/11/17 09:21 Temperature Pulse Rate Respiratory 18 Rate Blood Pressure (mmHg) O2 Sat by Pulse Oximetry Oxygen Devices in Use Now: None Appearance: well developed 21 yo female in NAD A+O x3 Eyes: No Scleral Icterus, PERRLA Ears/Nose/Mouth/Throat: NL Teeth, Lips, Gums, Mucous Membranes Moist, - - Tonsils: left right 3+ right 2+, no exudate noted. uvula midline. Neck: NL Appearance and Movements; NL JVP Respiratory: Symmetrical Chest Expansion and Respiratory Effort, Clear to Auscultation Cardiovascular: NL Sounds; No Murmurs; No JVD, RRR, No Edema Abdominal: NL Sounds; No Tenderness; No Distention Lymphatic: No Cervical Adenopathy Extremities: No Edema, No Clubbing, Cyanosis Skin: No Rash or Ulcers, No Nodules or Sclerosis Neurological: Alert and Oriented x 3, NL Sensation, NL Gait, NL Muscle Strength and Tone Lines/Tubes/Other Access: Clean, Dry and Intact Peripheral IV Nutrition: Taking PO's Result Diagrams: 07/11/17 04:45 07/11/17 04:45 Additional Lab and Data: Lab Results 07/09/17 07/09/17 07/09/17 Range/Units 22:30 22:30 22:46 WBC 2.9 L (3.5-10.8) 10^3/ul RBC 4.64 (4.0-5.4) 10^6/ul Hgb 12.6 (12.0-16.0) g/dl Hct 37 (35-47) % MCV 81 (80-97) fL MCH 27 (27-31) pg MCHC 34 (31-36) g/dl RDW 13 (10.5-15) % Plt Count 228 (150-450) 10^3/ul MPV 7.9 (7.4-10.4) um3 Neut % (Auto) 5.1 L (38-83) % Lymph % (Auto) 35.4 (25-47) % [place] % (Auto) 56.4 H (0-7) % Eos % (Auto) 2.1 (0-6) % Baso % (Auto) 1.0 (0-2) % Absolute Neuts (auto) 0.1 L* (1.5-7.7) 10^3/ul Absolute Lymphs (auto) 1.0 (1.0-4.8) 10^3/ul Absolute Monos (auto) 1.6 H (0-0.8) 10^3/ul Absolute Eos (auto) 0.1 (0-0.6) 10^3/ul Absolute Basos (auto) 0 (0-0.2) 10^3/ul Absolute Nucleated RBC 0 10^3/ul Immature Gran % 2 (0-9) % Neutrophils % 9 L (38-83) % Band Neutrophils % 2 (0-8) % Lymphocytes % 38 (25-47) % Monocytes % 51 H (0-7) % Nucleated RBC % 0 Normal RBC Morphology Normal (Normal) Sodium 134 L (139-145) mmol/L Potassium 4.0 (3.5-5.0) mmol/L Chloride 105 (101-111) mmol/L Carbon Dioxide 19 L (22-32) mmol/L Anion Gap 10 (2-11) mmol/L BUN 8 (6-24) mg/dL Creatinine 0.82 (0.51-0.95) mg/dL Est GFR ( Amer) 113.2 (>60) Est GFR (Non-Af Amer) 88.0 (>60) BUN/Creatinine Ratio 9.8 (8-20) Glucose 104 H (70-100) mg/dL Calcium 9.6 (8.6-10.3) mg/dL Total Bilirubin 0.90 (0.2-1.0) mg/dL AST 14 (13-39) U/L ALT 6 L (7-52) U/L Alkaline Phosphatase 43 (34-104) U/L C-Reactive Protein 98.13 H (< 5.00) mg/L Total Protein 7.0 (6.4-8.9) g/dL Albumin 4.1 (3.2-5.2) g/dL Globulin 2.9 (2-4) g/dL Albumin/Globulin Ratio 1.4 (1-3) Lipase < 10 L (11.0-82.0) U/L Beta HCG, Quant < 0.60 mIU/mL Urine Color Straw Urine Appearance Clear Urine pH 6.0 (5-9) Ur Specific [place] 1.002 L (1.010-1.030) Urine Protein Negative (Negative) Urine Ketones Negative (Negative) Urine Blood 1+ A (Negative) Urine Nitrate Negative (Negative) Urine Bilirubin Negative (Negative) Urine Urobilinogen Negative (Negative) Ur Leukocyte Esterase Negative (Negative) Urine WBC (Auto) Absent (Absent) Urine RBC (Auto) Absent (Absent) Urine Bacteria Absent (Absent) Urine Glucose Negative (Negative) Monoscreen Negative (Negative) Microbiology and Other Data: Microbiology 07/10/17 01:37 Group A Streptococcus Rapid Screen - Final Throat Specimen received for Rapid Strep A Molecular testing Assess/Plan/Problems-Billing Assessment: Ms. Rodriguez is a 21 yo female with PMH of previous hospitalization in 2014 for sepsis secondary to ecoli pyelonephritis who presented to the ER with c/o back pain and fever found to be neutropenic - Patient Problems (1) Neutropenia Comment: - Resolved. suspect viral, unclear source. Afebrile today. - chest xray, renal ultrasound negtaive; urine appears negative, blood cx pending - mono negative, group A strep negative, HIV negative, EBV showing old infection - CMV pending - appreciate Dr. Keene consult (Heme/Onc) who looked at her peripheral smear and noted mono cells only - no blasts - most likely viral illness (2) Acute pharyngitis Comment: - improving - low suspicion for abscess but at risk - gargle w/ salt water & chlorohexadine scheduled while awake - pain control (3) DVT prophylaxis Comment: encourage ambulation Status and Disposition: inpatient. home when medically stable
[2017-07-11] MEDS: Ketorolac INJ* 15 MG/ML 1 ML VIAL IV PUSH PRN (20:24)
[2017-07-12] MEDS: Chlorhexidine MOUTHWASH 0.12%* 15 ML UDC SWISH SPIT SCH ×4 (03:13→09:22)
[2017-07-12] MEDS: Ketorolac INJ* 15 MG/ML 1 ML VIAL IV PUSH PRN ×2 (03:23→09:22)
[2017-07-12 06:11] LABS: Hematocrit 34 % (35-47); Hemoglobin 11.7 g/dl (12.0-16.0); Mean Corpuscular HGB Conc 34 g/dl (31-36); Mean Corpuscular Hemoglobin 27 pg (27-31); Mean Corpuscular Volume 80 fL (80-97); Mean Platelet Volume 8.1 um3 (7.4-10.4); Platelet Count 230 10^3/ul (150-450); Red Blood Count 4.28 10^6/ul (4.0-5.4); Red Cell Distribution Width 13 % (10.5-15); White Blood Count 5.3 10^3/ul (3.5-10.8)
[2017-07-12 06:28] LABS: EGFR Non-African American 133.9 (>60)
[2017-07-12 06:39] LABS: ABS Basophils 0.1 10^3/ul (0-0.2); ABS Eosinophils 0.2 10^3/ul (0-0.6); ABS Lymphocytes 1.9 10^3/ul (1.0-4.8); ABS Monocytes 1.5 10^3/ul (0-0.8); ABS Neutrophils 1.6 10^3/ul (1.5-7.7); ABS Nucleated RBC 0 10^3/ul; Eosinophil % 4.1 % (0-6); Lymphocyte % 36.4 % (25-47); Nucleated Red Blood Cells % 0
[2017-07-12] MEDS ORDERED: Cholecalciferol TAB* 1000 UNITS PO SCH (09:00)
[2017-07-12] MEDS: Acetaminophen TAB* 325 MG PO PRN (09:22)
--- NOTE | 2017-07-12 09:31 | DCNOTE ---
Subjective Date of Service: 07/12/17 Interval History: Patient doing well and feels much better today. She reports her sore throat is "much better", still sore but overall she feels better. Denies fever or chills. No MYRICK. No N/V/D or abdominal pain. She is eating and feels that her appetite is improving. She has no pcp as she was a pt of Dr. Vidal who has retired - she is going to try to be set up with [facility] where her mother is a patient - she agreed to me calling to try to set up an appointment - I spoke with the office who will call the patient. Objective Active Medications: Acetaminophen (Tylenol Tab*) 650 mg PO Q4H PRN PRN Reason: PAIN Last Admin: 07/12/17 09:22 Dose: 650 mg Chlorhexidine Gluconate (Peridex Mouth Wash 0.12%*) 15 ml SWISH SPIT Q4HR [facility] Last Admin: 07/12/17 09:22 Dose: 15 ml Cholecalciferol (Vitamin D Tab*) 2,000 units PO DAILY [facility] Last Admin: 07/12/17 09:22 Dose: 2,000 units Ketorolac Tromethamine (Toradol Inj*) 15 mg IV PUSH Q6H PRN PRN Reason: PAIN Stop: 07/12/17 19:28 Last Admin: 07/12/17 09:22 Dose: 15 mg Prochlorperazine Edisylate (Compazine Inj*) 10 mg IV Q6H PRN PRN Reason: NAUSEA/VOMITING Last Admin: 07/11/17 14:01 Dose: 10 mg Throat Lozenges (Chloraseptic Camille*) 1 camille PO Q6H PRN PRN Reason: SORE THROAT Last Admin: 07/10/17 13:29 Dose: 1 camille Tramadol HCl (Ultram*) 50 mg PO Q8H PRN PRN Reason: PAIN Last Admin: 07/11/17 14:28 Dose: 50 mg Vital Signs - 8 hr 07/12/17 07/12/17 03:15 07:17 Temperature 98.2 F 98.1 F Pulse Rate 93 86 Respiratory 16 16 Rate Blood Pressure 115/63 102/62 (mmHg) O2 Sat by Pulse 100 99 Oximetry Oxygen Devices in Use Now: None Appearance: well developed 21 yo female A+O x3 in NAD, appropriate Eyes: No Scleral Icterus, PERRLA Ears/Nose/Mouth/Throat: NL Teeth, Lips, Gums, Mucous Membranes Moist, - - 1-2+ b /l tonsils, uvula midline, no educate noted Neck: NL Appearance and Movements; NL JVP Respiratory: Symmetrical Chest Expansion and Respiratory Effort, Clear to Auscultation Cardiovascular: NL Sounds; No Murmurs; No JVD, RRR, No Edema Abdominal: NL Sounds; No Tenderness; No Distention Lymphatic: - - mild left cervical adenopathy Extremities: No Edema, No Clubbing, Cyanosis Skin: No Rash or Ulcers, No Nodules or Sclerosis Neurological: Alert and Oriented x 3, NL Sensation, NL Gait Lines/Tubes/Other Access: Clean, Dry and Intact Peripheral IV Nutrition: Taking PO's Result Diagrams: 07/12/17 04:57 07/12/17 04:57 Additional Lab and Data: Lab Results 07/09/17 07/09/17 07/09/17 Range/Units 22:30 22:30 22:46 WBC 2.9 L (3.5-10.8) 10^3/ul RBC 4.64 (4.0-5.4) 10^6/ul Hgb 12.6 (12.0-16.0) g/dl Hct 37 (35-47) % MCV 81 (80-97) fL MCH 27 (27-31) pg MCHC 34 (31-36) g/dl RDW 13 (10.5-15) % Plt Count 228 (150-450) 10^3/ul MPV 7.9 (7.4-10.4) um3 Neut % (Auto) 5.1 L (38-83) % Lymph % (Auto) 35.4 (25-47) % [place] % (Auto) 56.4 H (0-7) % Eos % (Auto) 2.1 (0-6) % Baso % (Auto) 1.0 (0-2) % Absolute Neuts (auto) 0.1 L* (1.5-7.7) 10^3/ul Absolute Lymphs (auto) 1.0 (1.0-4.8) 10^3/ul Absolute Monos (auto) 1.6 H (0-0.8) 10^3/ul Absolute Eos (auto) 0.1 (0-0.6) 10^3/ul Absolute Basos (auto) 0 (0-0.2) 10^3/ul Absolute Nucleated RBC 0 10^3/ul Immature Gran % 2 (0-9) % Neutrophils % 9 L (38-83) % Band Neutrophils % 2 (0-8) % Lymphocytes % 38 (25-47) % Monocytes % 51 H (0-7) % Nucleated RBC % 0 Normal RBC Morphology Normal (Normal) Sodium 134 L (139-145) mmol/L Potassium 4.0 (3.5-5.0) mmol/L Chloride 105 (101-111) mmol/L Carbon Dioxide 19 L (22-32) mmol/L Anion Gap 10 (2-11) mmol/L BUN 8 (6-24) mg/dL Creatinine 0.82 (0.51-0.95) mg/dL Est GFR ( Amer) 113.2 (>60) Est GFR (Non-Af Amer) 88.0 (>60) BUN/Creatinine Ratio 9.8 (8-20) Glucose 104 H (70-100) mg/dL Calcium 9.6 (8.6-10.3) mg/dL Total Bilirubin 0.90 (0.2-1.0) mg/dL AST 14 (13-39) U/L ALT 6 L (7-52) U/L Alkaline Phosphatase 43 (34-104) U/L C-Reactive Protein 98.13 H (< 5.00) mg/L Total Protein 7.0 (6.4-8.9) g/dL Albumin 4.1 (3.2-5.2) g/dL Globulin 2.9 (2-4) g/dL Albumin/Globulin Ratio 1.4 (1-3) Lipase < 10 L (11.0-82.0) U/L Beta HCG, Quant < 0.60 mIU/mL Urine Color Straw Urine Appearance Clear Urine pH 6.0 (5-9) Ur Specific [place] 1.002 L (1.010-1.030) Urine Protein Negative (Negative) Urine Ketones Negative (Negative) Urine Blood 1+ A (Negative) Urine Nitrate Negative (Negative) Urine Bilirubin Negative (Negative) Urine Urobilinogen Negative (Negative) Ur Leukocyte Esterase Negative (Negative) Urine WBC (Auto) Absent (Absent) Urine RBC (Auto) Absent (Absent) Urine Bacteria Absent (Absent) Urine Glucose Negative (Negative) Monoscreen Negative (Negative) Microbiology and Other Data: Microbiology 07/10/17 01:37 Group A Streptococcus Rapid Screen - Final Throat Specimen received for Rapid Strep A Molecular testing Assess/Plan/Problems-Billing Assessment: Ms. Rodriguez is a 21 yo female with PMH of previous hospitalization in 2015 for sepsis secondary to ecoli pyelonephritis who presented to the ER with c/o back pain and fever found to be neutropenic - Patient Problems (1) Neutropenia Comment: - Resolved. suspect viral, unclear source. Afebrile. - chest xray, renal ultrasound negative; urine appears negative, blood cx NGT - mono negative, group A strep negative, HIV negative, EBV showing old infection - CMV pending - appreciate Dr. Keene consult (Heme/Onc) who looked at her peripheral smear and noted mono cells only - no blasts - suspect viral illness - side consulted ID who agrees viral illness (2) Acute pharyngitis Comment: - much improvement today - low suspicion for abscess but at risk - gargle w/ salt water & chlorohexadine scheduled while awake - pain control (3) DVT prophylaxis Comment: encourage ambulation Status and Disposition: inpatient. DC to home
[2017-07-12 12:00] VITALS: BP 106/67
--- NOTE | 2017-07-13 13:13 | DS ---
DISCHARGE SUMMARY: DATE OF ADMISSION: 07/09/17 DATE OF DISCHARGE: 07/12/17. PROVIDER: Kelli Irizarry NP. ATTENDING PHYSICIAN: Dr. Krishna * (report dictated by Kelli Irizarry NP). PRIMARY CARE PROVIDER: No PCP (possibly setting up a new establishment with [facility]). DISCHARGE DIAGNOSES: 1. Neutropenic fever, thought to be secondary to viral syndrome. 2. Acute pharyngitis. 3. Vitamin D deficiency. SECONDARY DIAGNOSIS: History of urosepsis with pyelonephritis in 2015, requiring hospitalization. HISTORY OF PRESENT ILLNESS AND HOSPITAL COURSE: Please see history and physical by Dr. Duenas for full admission details, but in summary, this is a 21- year-old female, who presented to the emergency room with back pain and fever starting approximately on 07/07/17, where she began to feel unwell. She reported she woke up with significant low back pain and felt achy all over and reported that her tonsils were somewhat swollen and hurt to swallow. She reported chills and fever. Given her history of pyelonephritis, she came to the emergency department for further evaluation. In the emergency department, she was found to have a fever of 101.4 and was neutropenic and was admitted to the hospitalist service for febrile neutropenia. Her monospot was negative; however, she did have large amount of monocytes on her labs. Dr. Zayas, union carpenter/oncologist was consulted and saw the patient in consultation and looked at her peripheral smear, which showed "lots of monocytes" and "no blasts. " His suspicion is viral syndrome. The patient had increasing tonsillar swelling with 2 to 3+ tonsils with no exudate noted, with low suspicion for any peritonsillar abscess. She gargled with warm salt water and chlorhexidine every few hours and this seemed to help the swelling and the pain. Again, unclear etiology behind what specifically the viral illness is. Her EBV came back for noted old infection, mono screen was negative. HIV nonreactive and group A strep nonreactive. CMV is pending at the time of dictation. The patient's white blood cell count was 2.9 on admission with absolute neutrophils of 0.1, which improved every day. In the last 48 hours, she has had a normal leukocytosis and the monos have been trending down as well as her ANCs have normalized and are now 1.6. Her electrolytes were replaced throughout hospitalization with noted low magnesium and potassium. She was given a fluid resuscitation with IV normal saline. She had noted C-reactive protein on admission of 98.13, which increased to 148, and is noted to be trending down. The patient has remained afebrile for 48 hours. She has had negative blood cultures. Her urinalysis was negative. The patient's vitamin D level was checked and is noted to be 10. She has been started on vitamin D supplementation at 5000 units p.o. daily. This was discussed with the patient at length that she could take between 2000 and 5000 units and recheck in approximately 3 months. We discussed vitamin D is important for her immunity and I told her she is not to take supplementation for more than 3 months without getting retested; however due to that she is still low, I suspect she could stay on a daily dose of 5000 units p.o. daily for quite a long time and will take her to increase her level. Again, this was discussed with the patient that she should follow up with this as an outpatient and be rechecked in 3 months. The patient does not have a primary care provider. She was followed by Dr. Smith , who recently retired. Her mother is a patient of [facility] and hopes to get into their practice. I called the office today and left the patient's name and contact information. They will be contacting the patient. DISCHARGE MEDICATIONS: 1. Acetaminophen 650 mg p.o. q.4 hours p.r.n. 2. Vitamin D3 5000 units p.o. daily. DISCHARGE PLAN: 1. Follow up with [facility]. Please note the patient is not an active patient yet, but the office is determining whether they can take her on as a new patient. I have instructed the patient if they cannot, to call back our [facility] office and we will help set her up with a primary care provider. 2. Vitamin D level to be checked in approximately 3 months. 3. She was instructed to return to the emergency department with any worsening or concerning symptoms. 4. I also encouraged the patient to continue to gargle with warm salt water and mouth wash alternating and if there is any increase in pain or worsening symptoms, this could mean she has developed a tonsillar abscess and she needs to come to the emergency department for further evaluation. The patient states understanding. TIME SPENT: Approximately 60 minutes was spent with this patient on discharge. KELLI IRIZARRY, BANDER OPERATOR [id number]/[facility] #: [id number] LUIZ
== END 2017-07-12 12:20 | disposition home or self-care (01) | DRG 810 ==
LOC: ED 21:36 → MED 07-10 01:34
PROVIDERS: ADMIT Hospitalist; ATTEND Student in an Organized Health Care Education/Training Program
DX: D70.8 Other neutropenia (principal); R50.81 Fever presenting with conditions classified elsewhere; B34.9 Viral infection, unspecified; J02.9 Acute pharyngitis, unspecified; E55.9 Vitamin D deficiency, unspecified; E83.42 Hypomagnesemia; E87.6 Hypokalemia; Z81.8 Family history of other mental and behavioral disorders; Z82.49 Family history of ischemic heart disease and other diseases of the circulatory system; F17.210 Nicotine dependence, cigarettes, uncomplicated
CPT/HCPCS: 36415; 71046; 76775; 80048; 80053; 81003; 81015; 82306; 82550; 83605; 83690; 83735; 84702; 85025; 85060; 86140; 86308; 86644; 86645; 86664; 86665; 86703; 87040; 87651; 99223; 99232; 99283; 99406; A9270-GY; J0780; J1885; J2270; J2543

== ENCOUNTER 2018-09-11 19:56 | Emergency (ER) | payer OTHER ==
--- NOTE | 2018-09-11 20:13 | ED ---
Back Pain - HPI Summary HPI Summary: This patient is a 22 year old F presenting to [facility] with a chief complaint of worsening back pain since five days ago. She was at work, and not lifting anything heavy. Pt has not PMHx of back problems. Pt denies dysuria, but reports more frequent urination. - History of Current Complaint Chief Complaint: EDBackInjuryPain Stated Complaint: LOWER BACK PAIN PER PT Time Seen by Provider: 09/11/18 20:06 Hx Obtained From: Patient Hx Last Menstrual Period: Mirina-spotting Onset/Duration: Gradual Onset, Lasting Days, Still Present Onset/Duration: Started Days Ago, Still Present Timing: Constant Severity Initially: Moderate Severity Currently: Severe Pain Intensity: 9 Pain Scale Used: 0-10 Numeric Alleviating Symptom(s): Nothing Associated Signs And Symptoms: Positive: Other - pos - increased urination, neg - dysuria - Allergies/Home Medications Allergies/Adverse Reactions: Allergies Allergy/AdvReac Type Severity Reaction Status Date / Time No Known Allergies Allergy Verified 02/27/17 07:50 PMH/Surg Hx/FS Hx/Imm Hx Endocrine/Hematology History: Denies: Hx Diabetes, Hx Thyroid Disease Cardiovascular History: Denies: Hx Congestive Heart Failure, Hx Hypertension Respiratory History: Denies: Hx Asthma, Hx Chronic Obstructive Pulmonary Disease (COPD) GI History: Denies: Hx Ulcer History: Denies: Hx Renal Disease Sensory History: Denies: Hx Contacts or Glasses, Hx Hearing Aid Opthamlomology History: Denies: Hx Contacts or Glasses - Surgical History Surgery Procedure, Year, and Place: n/a Infectious Disease History: No Infectious Disease History: Denies: Hx Clostridium Difficile, Hx Hepatitis, Hx Human Immunodeficiency Virus (HIV), Hx of Known/Suspected MRSA, Hx Shingles, Hx Tuberculosis, Hx Known/ Suspected VRE, Traveled Outside the [place] in Last 30 Days - Family History Known Family History: Negative: Hypertension, Diabetes, Blood Disorder - Social History Alcohol Use: Rare Substance Use Type: Reports: Marijuana Substance Use Comment - Amount & Last Used: last used today Smoking Status (MU): Current Every Day Smoker Type: Cigarettes Amount Used/How Often: 1/2 ppd Review of Systems Positive: frequency - increased frequency urination. Negative: dysuria Positive: Other - pos- Back Pain All Other Systems Reviewed And Are Negative: Yes Physical Exam - Summary Physical Exam Summary: VITAL SIGNS: Reviewed. GENERAL: Patient is a well-developed and nourished female who is lying comfortable in the stretcher. Patient is not in any acute respiratory distress. HEAD AND FACE: No signs of trauma. No ecchymosis, hematomas or skull depressions. No sinus tenderness. EYES: PERRLA, EOMI x 2, No injected conjunctiva, no nystagmus. EARS: Hearing grossly intact. Ear canals and tympanic membranes are within normal limits. MOUTH: Oropharynx within normal limits. NECK: Supple, trachea is midline, no adenopathy, no JVD, no carotid bruit, no c- spine tenderness, neck with full ROM. CHEST: Symmetric, no tenderness at palpation LUNGS: Clear to auscultation bilaterally. No wheezing or crackles. CVS: Regular rate and rhythm, S1 and S2 present, no murmurs or gallops appreciated. ABDOMEN: Soft, non-tender. No signs of distention. No rebound no guarding, and no masses palpated. Bowel sounds are normal. BACK: Paraspinal muscle tenderness on both sides of lumbar spine. EXTREMITIES: FROM in all major joints, no edema, no cyanosis or clubbing. NEURO: Alert and oriented x 3. No acute neurological deficits. Speech is normal and follows commands. SKIN: Dry and warm Triage Information Reviewed: Yes Vital Signs On Initial Exam: Initial Vitals Temp Pulse Resp BP Pulse Ox 99.1 F 100 20 109/69 97 09/11/18 19:58 09/11/18 19:58 09/11/18 19:58 09/11/18 19:58 09/11/18 19:58 Vital Signs Reviewed: Yes Diagnostics - Vital Signs Vital Signs Temp Pulse Resp BP Pulse Ox 09/11/18 19:58 99.1 F 100 20 109/69 97 - Laboratory Lab Statement: Any lab studies that have been ordered have been reviewed, and results considered in the medical decision making process. Back Pain Course/Dx - Course Assessment/Plan: This patient is a 22 year old F presenting to [facility] with a chief complaint of worsening back pain since five days ago. She was at work, and not lifting anything heavy. Pt has not PMHx of back problems. Pt denies dysuria, but reports more frequent urination. In the ED course the patient was given a prescription for naproxen, [place] and naproxen. Urinalysis is contaminated, however we will send the urine for cultures. If the urine is positive we will give the patient a call for further treatment. The patient understands and agrees. She was given instructions that if she develops any dysuria, fever, no nausea, increase in back pain she should immediately return to the emergency room for further workup and management. She understands and agrees. - Diagnoses Provider Diagnoses: Back pain Discharge - Sign-Out/Discharge Documenting (check all that apply): Patient Departure - Discharge Patient Received Moderate/Deep Sedation with Procedure: No - Discharge Plan Condition: Stable Disposition: HOME Prescriptions: Cyclobenzaprine TAB* [Flexeril 10 MG TAB*] 10 mg PO TID PRN #10 tab PRN Reason: Spasms - Back Hydrocodone/Acetaminophen [[place] 5-325 Tablet] 1 each PO Q4H PRN #10 tablet MDD 4 PRN Reason: Pain Naproxen TAB* [Naprosyn 250 mg TAB*] 500 mg PO Q8H PRN #15 tab PRN Reason: Pain Patient Education Materials: Back Pain (ED) Referrals: [facility] [Outside] - 3 Days Additional Instructions: Follow up with your primary care provider within three days RETURN TO THE ED FOR ANY WORSENING OR NEW SYMPTOMS. - Billing Disposition and Condition Condition: STABLE Disposition: Home - Attestation Statements Document Initiated by Mars: Yes Documenting Zeeibe: Zoraida Ocampo Provider For Whom Mars is Documenting (Include Credential): Dr. Pa Melendez MD Scribe Attestation: Zoraida Bucio scribed for Dr. Pa Melendez MD on 09/13/18 at 2010. Scribe Documentation Reviewed: Yes Provider Attestation: The documentation as recorded by the Zoraida hardin accurately reflects the service I personally performed and the decisions made by me, Dr. Pa Melendez MD Status of Scribe Document: Viewed
[2018-09-11] MEDS ORDERED: Ketorolac INJ* 30 MG/ML 1 ML VIAL IM ONE (20:34)
[2018-09-11 20:54] LABS: Urine Appearance Cloudy; Urine Bacteria Absent (Absent); Urine Bilirubin Negative (Negative); Urine Blood 1+ (Negative); Urine Color Yellow; Urine Glucose Negative (Negative); Urine Ketones Negative (Negative); Urine Nitrite Negative (Negative); Urine Protein Negative (Negative); Urine Red Blood Cell 3+(>10/hpf) (Absent); Urine Specific Gravity 1.012 (1.010-1.030); Urine Squamous Epithelial Cell Present (Absent); Urine Urobilinogen Negative (Negative); Urine White Blood Cell 3+(>20/hpf) (Absent)
[2018-09-11 21:40] VITALS: BP 109/71
--- NOTE | 2018-09-14 18:26 | ED ---
Progress - Progress Note Progress Note: Patient's final urine culture reveals greater than 100,000 Staphylococcus saprophyticus. Patient presented with atraumatic back pain - no antibiotics prescribed at time of discharge. Will send Bactrim to [facility] as [facility] is patient's preferred pharmacy in chart. Left message to call. Will also send a letter. casey Olmosrk, aware. If fever, vomiting, worsening pain, needs to return to ED. Course/Dx - Diagnoses Provider Diagnoses: Back pain Discharge - Sign-Out/Discharge Documenting (check all that apply): Post-Discharge Follow Up Patient Received Moderate/Deep Sedation with Procedure: No - Discharge Plan Condition: Stable Disposition: HOME Prescriptions: Cyclobenzaprine TAB* [Flexeril 10 MG TAB*] 10 mg PO TID PRN #10 tab PRN Reason: Spasms - Back Hydrocodone/Acetaminophen [[place] 5-325 Tablet] 1 each PO Q4H PRN #10 tablet MDD 4 PRN Reason: Pain Naproxen TAB* [Naprosyn 250 mg TAB*] 500 mg PO Q8H PRN #15 tab PRN Reason: Pain Patient Education Materials: Back Pain (ED) Referrals: [facility] [Outside] - 3 Days Additional Instructions: Follow up with your primary care provider within three days RETURN TO THE ED FOR ANY WORSENING OR NEW SYMPTOMS. - Billing Disposition and Condition Condition: STABLE Disposition: Home
== END 2018-09-11 21:39 | disposition home or self-care (01) ==
LOC: ED 19:56
DX: M54.9 Dorsalgia, unspecified (principal); R35.0 Frequency of micturition; F17.210 Nicotine dependence, cigarettes, uncomplicated
CPT/HCPCS: 81003; 81015; 87077; 87086; 96372; 99282; J1885